=== PATIENT | male | born 1955 | race Caucasian/White ===

== ENCOUNTER 2022-04-30 16:18 | Emergency (ER) | payer MEDICARE, OTHER ==
[2022-04-30 16:53] LABS: ANION GAP 10.4 meq/L (7-15); CHLORIDE,CL 104 mmol/L (98-107); ESTIMATED GFR 59 mL/min (>=60); SODIUM,NA 141 mmol/L (136-145)
[2022-04-30] MEDS: Sodium Chloride 0.9% 1,000 ML IV ONE (17:39)
[2022-04-30] MEDS: Iopamidol 755 Mg/ML 100 ML Bottle IVPUSH STA (17:42)
[2022-04-30] MEDS: Apixaban 5 MG Tab PO ONE (21:05)
[2022-04-30 22:29] VITALS: BP 178/92; PULSE 56
== END 2022-04-30 21:17 | disposition home or self-care (01) ==
LOC: LL.ED 16:18
DX: I26.93 Single subsegmental thrombotic pulmonary embolism without acute cor pulmonale (principal); R79.89 Other specified abnormal findings of blood chemistry; E78.00 Pure hypercholesterolemia, unspecified; I10 Essential (primary) hypertension; Z79.899 Other long term (current) drug therapy; Z79.01 Long term (current) use of anticoagulants; Z87.891 Personal history of nicotine dependence
CPT/HCPCS: 36415; 71045; 71275; 80053; 84484; 85025; 85379; 93005; 93010; 96360; 99284; 99285-25; A9270-GY; J7030; Q9967